=== PATIENT | female | born 1990 | race Caucasian/White ===

== ENCOUNTER → 2022-02-22 | Outpatient (CLI) | payer OTHER ==
--- NOTE | 2022-02-22 15:33 | US ---
EXAMINATION TYPE: US pelvic complete DATE OF EXAM: 02/22/2022 COMPARISON: NONE CLINICAL HISTORY: 31-year-old female R10.2 PELVIC AND PERINEAL PAIN. Pelvic pain for 3 weeks, h/o IUD for over 7 years, newest IUD placed 2 years ago, G0 TECHNIQUE: TA. Transabdominal sonographic images of the pelvis were acquired. Date of LMP: 02/08/2022 FINDINGS: EXAM MEASUREMENTS: Uterus: 7.8 x 4.9 x 3.1 cm Endometrial Stripe: 0.7 cm Right Ovary: 2.2 x 2.2 x 1.5 cm Left Ovary: 2.5 x 1.5 x 1.9 cm 1. Uterus: Anteverted and otherwise wnl 2. Endometrium: The IUD is not well seen on these images. However, the numerical control nesting operator indicates subtle areas of shadowing delineating the proximal and distal ends of the IUD which would place it satisfact orily along the uterine cavity. 3. Right Ovary: wnl 4. Left Ovary: wnl 5. Bilateral Adnexa: wnl 6. Posterior cul-de-sac: wnl IMPRESSION: 1. The IUD is not well seen on these images. However, the numerical control nesting operator indicate subtle areas of shadow ing delineating the proximal and distal ends of the IUD which would place it satisfactorily along the uterine cavity. 2. Otherwise, no specific abnormality seen.
== END | disposition home or self-care (01) ==
LOC: RADUSWWP 11:03
DX: R10.2 Pelvic and perineal pain (principal)
CPT/HCPCS: 76856